=== PATIENT | male | born 1945 | race Caucasian/White ===

== ENCOUNTER 2021-11-08 08:20 | Emergency (ER) | payer OTHER ==
[2021-11-08 08:28] VITALS: RESP 18; BMI 21.9
[2021-11-08] MEDS ORDERED: BEBTELOVIMAB (EUA) 175 MG/2 ML VIAL IVPUSH ONE (08:39)
[2021-11-08] MEDS ORDERED: SODIUM CHLORIDE 0.9% 500 ML INFUS.BAG IV ONE (10:58)
[2021-11-08 11:26] VITALS: BP 83/45; PULSE 68; TEMP 98.3
== END 2021-11-08 14:59 | disposition home or self-care (01) ==
LOC: JER 08:20
DX: U07.1 COVID-19 (principal)
CPT/HCPCS: 99284-25; M0222; Q0222